=== PATIENT | female | born 1960 | race Caucasian/White ===

== ENCOUNTER 2019-04-01 10:35 | Emergency (ER) | payer MEDICAID ==
--- NOTE | 2019-04-01 10:47 | EDM.PDOC ---
ED HPI GENERAL MEDICAL PROBLEM - General Stated Complaint: LOW BACK, HIP, PAIN GOING DOWN RIGHT LEG Time Seen by Provider: 04/01/19 10:47 Source of Information: Reports: Patient History Limitations: Reports: No Limitations - History of Present Illness INITIAL COMMENTS - FREE TEXT/NARRATIVE: 58-year-old female who reports long-standing history of lumbar back problems as well as neck problems related to DDD who reports pain in her right foot and leg for quite some time that she felt was associated with her lower back pain which she has continually on a day to day basis who reports a gradual worsening of the pain over the past few months and since Thursday of last she has had pain that seems to radiate from her foot to her leg up into her thigh and groin area as well as her lower back on the right side. Today the pain is severe with what feels almost like spasms of her pain that are "unbearable". The pain is worse with movement and with palpation but it is present even without this occurring. She reports the pain is a 10/10 level and she would feel that it would be higher. She states that she has oxycodone and hydrocodone and Flexeril at home and has gotten no relief from any of these medications. She has had no fevers or chills. She's had no bowel or bladder incontinence or control problems. No leg weakness but she feels that she cannot lift her leg secondary to the pain. She has reported some numbness in her foot. She is able to move her foot and her ankle on the right side without problems. She is also able to bend her knee on the right side without problems. She reports it is just when she attempts to raise her leg at the hip that she has a marked increase in her pain such that she cannot do this. She has had no known injury. No antecedent problems. No fevers or chills. No abdominal pain. No dysuria or hematuria. The pain seems to radiate either upper leg into her back or from her back down to her leg. Lying down and at rest does seem to make the pain better less severe. There are no other associated signs or symptoms. There are no other modifying factors. Onset: Other (As above. 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 Medication(s) (Has tried oxycodone and hydrocodone and Flexeril) Back/Groin/Right leg Pain Score (Numeric/FACES): 10 - Related Data Allergies Allergy/AdvReac Type Severity Reaction Status Date / Time montelukast Allergy Rash Verified 04/01/19 12:00 Home Meds: Home Meds Celecoxib [CeleBREX] 200 mg PO DAILY 04/01/19 [History] Citalopram Hydrobromide [Celexa] 40 mg PO DAILY 04/01/19 [History] Escitalopram [Lexapro] 30 mg PO DAILY 04/01/19 [History] Gabapentin [Neurontin] 900 mg PO BEDTIME 04/01/19 [History] Hydrocodone/Acetaminophen [Hydrocodon-Acetaminophen 5-325] 1 each PO Q4H PRN 06/19 [History] Ibuprofen 800 mg PO BID 04/01/19 [History] Lidocaine 5% [Lidoderm 5%] 1 patch TOP DAILY 04/01/19 [History] Magnesium Oxide 500 mg PO BID 04/01/19 [History] Naproxen 500 mg PO BID 04/01/19 [History] Pravastatin Sodium [Pravachol] 20 mg PO BEDTIME 04/01/19 [History] SUMAtriptan 100 mg PO ASDIRECTED PRN 04/01/19 [History] Sennosides/Docusate Sodium [Senna-S] 2 each PO DAILY 04/01/19 [History] buPROPion HCl [Wellbutrin Xl] 300 mg PO DAILY 04/01/19 [History] diazePAM [Valium] 5 - 10 mg PO Q6H PRN #20 tab 04/01/19 [Rx] oxyCODONE 5 mg PO Q4H PRN 04/01/19 [History] oxyCODONE 5 mg PO Q6H PRN #12 tab 04/01/19 [Rx] traZODone 150 mg PO BEDTIME 04/01/19 [History] valACYclovir HCl [Valacyclovir] 1,000 mg PO BID 04/01/19 [History] Past Medical History Cardiovascular History: Reports: High Cholesterol Musculoskeletal History: Reports: Back Pain, Chronic, Neck Pain, Chronic, SLE, Other (See Below) (DDD) Neurological History: Reports: Migraines Psychiatric History: Reports: Anxiety, Depression - Past Surgical History HEENT Surgical History: Reports: Other (See Below) (Jaw surgery) GI Surgical History: Reports: Lysis of Adhesions (c) Female Surgical History: Reports: Breast Biopsy (Bilateral breast surgery for removal of infection/benign mass), Hysterectomy Neurological Surgical History: Reports: Spinal Fusion, Other (See Below) (Back surgery 3 with the last surgery being in September 2018 which was L5-S1 spinal decompression) Musculoskeletal Surgical History: Reports: Shoulder Surgery Social & Family History - Tobacco Use Smoking Status *Q: Current Every Day Smoker - Alcohol Use Alcohol Use History: Yes Alcohol Use Frequency: Socially (Occasionally) - Living Situation & Occupation Living situation: Reports: , with Spouse Social History Comment: Patient reports that she recently moved here from [facility] GENERAL - Review of Systems Review Of Systems: See Below Constitutional: Reports: No Symptoms. Denies: Fever, Chills, Malaise HEENT: Reports: No Symptoms Respiratory: Reports: No Symptoms Cardiovascular: Reports: No Symptoms GI/Abdominal: Reports: Nausea. Denies: Abdominal Pain, Vomiting : Reports: No Symptoms Musculoskeletal: Reports: Back Pain, Leg Pain, Foot Pain Skin: Reports: No Symptoms Neurological: Reports: No Symptoms Hematologic/Lymphatic: Reports: No Symptoms Immunologic: Reports: No Symptoms ED EXAM,LOWER BACK PAIN/INJURY - Physical Exam Exam: See Below Exam Limited By: No Limitations General Appearance: Alert, WD/WN, Moderate Distress (to severe--appears to be in pain) Eye Exam: Bilateral Eye: EOMI, Normal Inspection, PERRL Ears: Normal External Exam, Hearing Grossly Normal Nose: Normal Inspection, Normal Mucosa, No Blood Throat/Mouth: Normal Inspection, Normal Lips, Normal Oropharynx, Normal Voice, No Airway Compromise Head: Atraumatic, Normocephalic Neck: Normal Inspection, Supple, Non-Tender, Full Range of Motion Respiratory/Chest: No Respiratory Distress, Lungs Clear, Normal Breath Sounds, No Accessory Muscle Use, Chest Non-Tender Cardiovascular: Normal Peripheral Pulses, Regular Rate, Rhythm, No Edema, No Murmur GI/Abdominal: Normal Bowel Sounds, Soft, Non-Tender, No Mass Back Exam: Muscle Spasm, Paraspinal Tenderness Extremities: Normal Inspection, Non-Tender, No Pedal Edema, Normal Capillary Refill Neurological: Alert, Normal Mood/Affect, CN II-XII Intact, Normal Plantar Flexion, No Motor/Sensory Deficits, Oriented x 3 Psychiatric: Anxious Skin Exam: Warm, Dry, Intact, Normal Color, No Rash Course - Vital Signs Last Recorded V/S: Last Vital Signs Temp 36.9 C 04/01/19 10:45 Pulse 74 04/01/19 10:45 Resp 26 H 04/01/19 10:45 BP 128/88 04/01/19 10:45 Pulse Ox 98 04/01/19 10:45 - Orders/Labs/Meds Labs: Laboratory Tests 04/01/19 04/01/19 04/01/19 Range/Units 12:05 12:05 12:05 WBC 5.0 (4.5-12.0) X10-3/uL RBC 4.13 (3.23-5.20) x10(6)uL Hgb 13.0 (11.5-15.5) g/dL Hct 38.6 (30.0-51.3) % MCV 93.6 (80-96) fL MCH 31.5 (27.7-33.6) pg MCHC 33.7 (32.2-35.4) g/dL RDW 12.7 (11.5-15.5) % Plt Count 268 (125-369) X10(3)uL MPV 8.4 (7.4-10.4) fL Neut % (Auto) 67.8 (46-82) % Lymph % (Auto) 22.6 (13-37) % [place] % (Auto) 7.5 (4-12) % Eos % (Auto) 2 (1.0-5.0) % Baso % (Auto) 1 (0-2) % Neut # (Auto) 3.3 (1.6-8.3) # Lymph # (Auto) 1.1 (0.6-5.0) # [place] # (Auto) 0.4 (0.0-1.3) # Eos # (Auto) 0.1 (0.0-0.8) # Baso # (Auto) 0.0 (0.0-0.2) # Sodium 140 (135-145) mmol/L Potassium 3.9 (3.5-5.3) mmol/L Chloride 106 (100-110) mmol/L Carbon Dioxide 21 (21-32) mmol/L BUN 14 (7-18) mg/dL Creatinine 0.9 (0.55-1.02) mg/dL Est Cr Clr Drug Dosing 59.55 mL/min Estimated GFR (MDRD) > 60 (>60) BUN/Creatinine Ratio 15.6 (9-20) Glucose 97 (80-116) mg/dL Calcium 9.7 (8.6-10.2) mg/dL Magnesium 1.8 (1.8-2.5) mg/dL C-Reactive Protein 0.4 L (0.5-0.9) mg/dL Urine Color (YELLOW) Urine Appearance (CLEAR) Urine pH (5.0-6.5) Ur Specific [place] (1.010-1.025) Urine Protein (NEGATIVE) mg/dL Urine Glucose (UA) (NORMAL) mg/dL Urine Ketones (NEGATIVE) mg/dL Urine Occult Blood (NEGATIVE) Urine Nitrite (NEGATIVE) Urine Bilirubin (NEGATIVE) Urine Urobilinogen (NEGATIVE) mg/dL Ur Leukocyte Esterase (NEGATIVE) Urine WBC (0-5) Ur Squamous Epith Cells (NS,R,O) Urine Bacteria (NS) 04/01/19 Range/Units 12:50 WBC (4.5-12.0) X10-3/uL RBC (3.23-5.20) x10(6)uL Hgb (11.5-15.5) g/dL Hct (30.0-51.3) % MCV (80-96) fL MCH (27.7-33.6) pg MCHC (32.2-35.4) g/dL RDW (11.5-15.5) % Plt Count (125-369) X10(3)uL MPV (7.4-10.4) fL Neut % (Auto) (46-82) % Lymph % (Auto) (13-37) % [place] % (Auto) (4-12) % Eos % (Auto) (1.0-5.0) % Baso % (Auto) (0-2) % Neut # (Auto) (1.6-8.3) # Lymph # (Auto) (0.6-5.0) # [place] # (Auto) (0.0-1.3) # Eos # (Auto) (0.0-0.8) # Baso # (Auto) (0.0-0.2) # Sodium (135-145) mmol/L Potassium (3.5-5.3) mmol/L Chloride (100-110) mmol/L Carbon Dioxide (21-32) mmol/L BUN (7-18) mg/dL Creatinine (0.55-1.02) mg/dL Est Cr Clr Drug Dosing mL/min Estimated GFR (MDRD) (>60) BUN/Creatinine Ratio (9-20) Glucose (80-116) mg/dL Calcium (8.6-10.2) mg/dL Magnesium (1.8-2.5) mg/dL C-Reactive Protein (0.5-0.9) mg/dL Urine Color Yellow (YELLOW) Urine Appearance Clear (CLEAR) Urine pH 7.0 H (5.0-6.5) Ur Specific [place] 1.010 (1.010-1.025) Urine Protein Negative (NEGATIVE) mg/dL Urine Glucose (UA) Normal (NORMAL) mg/dL Urine Ketones Negative (NEGATIVE) mg/dL Urine Occult Blood Negative (NEGATIVE) Urine Nitrite Negative (NEGATIVE) Urine Bilirubin Negative (NEGATIVE) Urine Urobilinogen Normal (NEGATIVE) mg/dL Ur Leukocyte Esterase Negative (NEGATIVE) Urine WBC 0-5 (0-5) Ur Squamous Epith Cells Few H (NS,R,O) Urine Bacteria Few H (NS) Meds: Medications Discontinued Medications Generic Name Dose Route Start Last Admin Trade Name Freq PRN Reason Stop Dose Admin Diazepam 10 mg 04/01/19 11:46 04/01/19 11:52 Valium PO 04/01/19 11:47 10 mg ONETIME ONE Administration Hydromorphone HCl 2 mg 04/01/19 11:46 04/01/19 11:51 Dilaudid IM 04/01/19 11:47 2 mg ONETIME ONE Administration Oxycodone HCl 10 mg 04/01/19 13:28 Oxycodone PO 04/01/19 13:29 ONETIME ONE Promethazine HCl 25 mg 04/01/19 11:46 04/01/19 11:52 Phenergan IM 04/01/19 11:47 25 mg ONETIME ONE Administration - Re-Assessments/Exams Free Text/Narrative Re-Assessment/Exam: 04/01/19 13:25: Patient's pain is improved. It is now down to a 7-8/10. Her mobility is improved. Her blood tests are reassuringly normal. Her urine test was normal. I do not see evidence of infection or inflammation. She appears to have a lumbar radiculopathy on the right side. This appears to be an acute worsening of her chronic issue with her back. I do not see any indication at this point for emergent imaging of her back. I have stressed with the patient that she needs follow-up with her primary provider and she may need additional outpatient testing and referral to specialist. I will provide the patient a prescription for oxycodone and Valium but I have also stressed to the patient that for any ongoing pain control issues, she will need to go through her primary provider. Precautions and reasons for return to the Emergency Department were discussed with the patient and her . Departure - Departure Time of Disposition: 13:35 Disposition: Home, Self-Care 01 Condition: Good (Improved) Clinical Impression: Lumbar back pain with radiculopathy affecting right lower extremity, Acute exacerbation of chronic low back pain - Discharge Information Prescriptions: diazePAM [Valium] 5 - 10 mg PO Q6H PRN #20 tab PRN Reason: Moderate to severe pain oxyCODONE 5 mg PO Q6H PRN #12 tab PRN Reason: Muscle pain or muscle spasm Instructions: Back Exercises, [id number], Chronic Back Pain, [id number], Lumbosacral Radiculopathy, Pain Medicine Instructions, [id number] Referrals: Kris Jane MD [Primary Care Provider] - Additional Instructions: Your blood tests were reassuringly normal. Your urine test was normal. You appear to have an acute worsening of your chronic lower back pain with pain going down a nerve into your right leg. This is called a radiculopathy and is caused by compression of the nerve coming from your back and going down your leg. Keep your appointment with your doctor as may need additional testing as an outpatient and you may need referral to a specialist. Medication as prescribed (oxycodone 5 mg, Valium 5 mg). For any further pain control measures , you will need to go through your primary provider. Begin back stretching and general back exercises in the next few days. Back to the emergency department for bowel or bladder control problems, fever, leg weakness, unrelenting vomiting or any other concerning sign or symptom.
[2019-04-01] MEDS: HYDROmorphone 2 MG/ML SDV IM ONE (11:51)
[2019-04-01] MEDS: Promethazine 25 MG/ML SDV IM ONE (11:52)
[2019-04-01] MEDS: Diazepam 10 MG Tab PO ONE (11:52)
[2019-04-01] MEDS: oxyCODONE 5 MG Tab PO ONE (14:05)
== END 2019-04-01 14:00 | disposition home or self-care (01) ==
LOC: FB.ED 10:35
DX: M54.16 Radiculopathy, lumbar region (principal); F41.9 Anxiety disorder, unspecified; F32.9 Major depressive disorder, single episode, unspecified; Z88.8 Allergy status to other drugs, medicaments and biological substances; Z79.899 Other long term (current) drug therapy; F17.200 Nicotine dependence, unspecified, uncomplicated
CPT/HCPCS: 36415; 80048; 81001; 83735; 85025; 86140; 96372; 99283; A9270; J1170; J2550